=== PATIENT | female | born 1985 | race Caucasian/White ===

== ENCOUNTER 2023-05-14 08:00 | Emergency (ER) | payer OTHER ==
[~2023-05-14] VITALS: Ht 162.6 cm; Wt 90.7 kg
[2023-05-14 09:09] VITALS: O2SAT 98
== END 2023-05-14 09:15 | disposition home or self-care (01) ==
LOC: FSED 08:06
DX: R60.9 Edema, unspecified (principal); W49.04XA Ring or other jewelry causing external constriction, initial encounter; Y92.89 Other specified places as the place of occurrence of the external cause
CPT/HCPCS: 99283